=== PATIENT | male | born 1990 | race Caucasian/White ===

== ENCOUNTER 2020-04-23 02:47 | Emergency (ER) | payer OTHER ==
[2020-04-23 02:57] VITALS: BP 109/72; PULSE 79; RESP 16; TEMP 98.2
--- NOTE | 2020-04-23 07:56 | ED ---
General Adult HPI - General Chief complaint: Alcohol Stated complaint: ETOH Time Seen by Provider: 04/23/20 02:56 Source: patient, EMS Mode of arrival: EMS Limitations: no limitations - History of Present Illness Initial comments: This patient is a 29-year-old man who is brought by ambulance to have evaluation. The patient had reportedly fall sleep in his vehicle and bystanders phoned police. It is reported that they attempted to wake the patient and he was very somnolent. They phoned EMS to transport him here. When I evaluate the patient, he is not having any complaints. He is denying pain and dyspnea. He states that he had worked all day, and then that he stopped to have something to eat. He states that he did have one beer and a meal and then he had taken one of his back pills. -: hour(s) Severity scale (1-10): 0 Consistency: constant Improves with: none Worsens with: none Associated Symptoms: denies other symptoms Treatments Prior to Arrival: none Review of Systems ROS Statement: Those systems with pertinent positive or pertinent negative responses have been documented in the HPI. ROS Other: All systems not noted in ROS Statement are negative. Constitutional: Denies: fever, chills Eyes: Denies: vision change Respiratory: Denies: cough, dyspnea Cardiovascular: Denies: chest pain, palpitations Gastrointestinal: Denies: abdominal pain, vomiting, diarrhea Musculoskeletal: Denies: back pain Skin: Denies: rash Neurological: Denies: headache, weakness, numbness, confusion Past Medical History Past Medical History: Unable to Obtain History of Any Multi-Drug Resistant Organisms: None Reported Past Surgical History: Unable to Obtain Past Psychological History: No Psychological Hx Reported Smoking Status: Current some day smoker Past Alcohol Use History: Heavy Past Drug Use History: Prescription Drug Abuse General Exam Limitations: no limitations General appearance: in no apparent distress, other (Patient is very somnolent but arouses to voice or touch) Head exam: Present: atraumatic, normocephalic Eye exam: Present: normal appearance, PERRL, EOMI. Absent: scleral icterus, conjunctival injection, nystagmus ENT exam: Present: normal oropharynx Neck exam: Present: normal inspection, full ROM. Absent: tenderness Respiratory exam: Present: normal lung sounds bilaterally. Absent: respiratory distress, wheezes, rales, rhonchi, stridor Cardiovascular Exam: Present: regular rate, normal rhythm, normal heart sounds. Absent: systolic murmur, diastolic murmur, rubs, gallop GI/Abdominal exam: Present: soft. Absent: distended, tenderness, guarding, rebound, rigid, mass Extremities exam: Present: normal inspection, normal capillary refill Back exam: Present: normal inspection Neurological exam: Present: oriented X3, CN II-XII intact, other (Patient is somnolent but arouses to voice or touch. ). Absent: motor sensory deficit Skin exam: Present: warm, dry, intact, normal color. Absent: rash Course Vital Signs 04/23/20 02:49 Temperature 98.2 F Pulse Rate 79 Respiratory 16 Rate Blood Pressure 109/72 O2 Sat by Pulse 100 Oximetry Disposition Clinical Impression: Altered mental status, unspecified Disposition: Left Against Medical Advice Condition: Good Is patient prescribed a controlled substance at d/c from ED?: No Referrals: None,Stated [Primary Care Provider] - 1-2 days
== END 2020-04-23 08:11 | disposition left against medical advice (07) ==
LOC: EC 02:47
DX: R41.82 Altered mental status, unspecified (principal); F17.200 Nicotine dependence, unspecified, uncomplicated; Z53.29 Procedure and treatment not carried out because of patient's decision for other reasons
CPT/HCPCS: 99283